=== PATIENT | female | born 1980 ===

== ENCOUNTER 2021-11-29 11:05 | Outpatient (CLI) | payer OTHER ==
--- NOTE | 2021-12-09 10:36 | Mammography Report ---
BILATERAL DIGITAL SCREENING MAMMOGRAM 3D/2D: 11/29/2021 CLINICAL: Routine screening. No prior exams were available for comparison. Both breasts are heterogeneously dense, which may obscure small masses (category c / 51-75% glandula r tissue). There is a cluster of grouped fine pleomorphic calcifications in the right breast at 12 o'clock middl e depth. There also is architectural distortion in the right breast posterior depth lateral region seen on the craniocaudal view only. No other significant masses, calcifications, or other findings are seen in either breast. IMPRESSION: INCOMPLETE: NEEDS ADDITIONAL IMAGING EVALUATION The cluster of grouped fine pleomorphic calcifications in the right breast at 12 o'clock middle depth are indeterminate. Additional views with possible ultrasound are recommended. The architectural distortion in the right breast posterior depth lateral region seen on the craniocau brent view only is indeterminate. Additional views with possible ultrasound are recommended. Based on Tyrer-Cuzick model (a risk assessment model), the patient's lifetime risk is 28.2% and her 1 0 year risk is 4.8%. If a patient has an elevated risk, a more comprehensive evaluation should be con sidered and/or a referral to a genetic counselor. The [place] [employer], [employer], and NCCN Guidelines advise the consideration of Breast MRI as an adjunct to screening mammog aura in patients whose "Lifetime risk to develop breast cancer" is 20% or higher. This exam was interpreted at Station ID: [id number]. NOTE: For mammograms, a report in lay terms will be sent to the patient. Approximately 15% of breast malignancies will not be visualized mammographically. In the management of a palpable breast mass, a negative mammogram must not discourage biopsy of a clinically suspicious lesion. Electronically Signed By: Han Green M.D., jr/refugio:12/08/2021 11:22:25 ACR BI-RADS Category 0: Incomplete 3340F PARENCHYMAL PATTERN: (D) - The breast(s) demonstrate(s) heterogeneously dense fibroglandular parenchy ma. BI-RADS CATEGORY: (0) - 0 Mammo and [place] [id number] Immediate follow-up LATERALITY: (B)
== END 2021-11-29 11:06 | disposition home or self-care (01) ==
LOC: DI.N 11:05
PROVIDERS: ATTEND Obstetrics & Gynecology
DX: Z12.31 Encounter for screening mammogram for malignant neoplasm of breast (principal); R92.1 Mammographic calcification found on diagnostic imaging of breast

== ENCOUNTER 2022-02-07 10:52 | Outpatient (CLI) | payer BC ==
[2022-02-07 11:15] LABS: BASOPHILS % (AUTO) 0.4 %; EOSINOPHILS # (AUTO) 0.2 10^3/uL (0.0-0.7); EOSINOPHILS % (AUTO) 2.9 %; HCT - HEMATOCRIT 39.3 % (37.0-47.0); LYMPHOCYTES # (AUTO) 2.1 10^3/uL (1.5-3.5); LYMPHOCYTES % (AUTO) 30.2 %; MEAN CORPUSCULAR HEMOGLOBIN 31.6 pg (27.0-31.0); MEAN CORPUSCULAR HGB CONC 33.1 g/dL (32.0-36.0); MEAN CORPUSCULAR VOLUME 95.6 fL (81.0-99.0); MONOCYTES # (AUTO) 0.4 10^3/uL (0.0-1.0); MONOCYTES % (AUTO) 5.4 %; NEUTROPHILS # (AUTO) 4.2 10^3/uL (1.5-6.6); PLT - PLATELET COUNT 270 10^3/uL (130-450); RED BLOOD COUNT 4.11 10^6/uL (4.20-5.40); RED CELL DISTRIBUTION WIDTH 13.6 % (12.0-15.0); WHITE BLOOD COUNT 6.9 x10^3/uL (4.8-10.8)
== END 2022-02-07 10:53 | disposition home or self-care (01) ==
LOC: LAB 10:52
PROVIDERS: ATTEND Obstetrics & Gynecology
DX: Z01.812 Encounter for preprocedural laboratory examination (principal); R10.2 Pelvic and perineal pain; N93.9 Abnormal uterine and vaginal bleeding, unspecified
CPT/HCPCS: 36415; 85025

== ENCOUNTER 2022-02-08 07:30 | Day surgery (SDC) | payer BC ==
[~2022-02-08 07:30] MED LIST: ACETAMINOPHEN 500 MG TABLET PO ONE; CEFAZOLIN 2G/50ML 0.9% NS 2 GM/50 ML BAG IV ONE; CELECOXIB 100 MG CAPSULE PO ONE; DEXAMETHASONE 4 MG/ML VIAL ONE; GABAPENTIN 400 MG CAPSULE ONE; MIDAZOLAM 2 MG/2 ML VIAL ONE; ONDANSETRON 4 MG/2 ML VIAL ONE; PROPOFOL 200 MG/20 ML VIAL IVP ONE; ROCURONIUM 50 MG/5 ML VIAL ONE; fentaNYL 100 MCG/2 ML VIAL ONE
[2022-02-08] MEDS ORDERED: VASOPRESSIN 20 UNIT/ML VIAL ONE (07:43)
[2022-02-08] MEDS ORDERED: BUPIVACAINE 0.25% PF 10 ML VIAL ONE (07:43)
[2022-02-08 07:55] LABS: HCG UR QUAL NEGATIVE
[2022-02-08] MEDS ORDERED: LACTATED RINGERS 1,000 ML IV ONE ×2 (08:02→12:49)
[2022-02-08] MEDS ORDERED: LIDOCAINE MPF 2%-EPI 1:200000 20 ML VIAL ONE (08:05)
[2022-02-08] MEDS ORDERED: METHYLENE BLUE 0.5% 50 MG/10 ML AMPULE ONE (08:06)
[2022-02-08] MEDS ORDERED: ATROPINE ABBOJECT 1 MG/10 ML SYRINGE IVP PRN (08:06)
[2022-02-08] MEDS ORDERED: ONDANSETRON 4 MG/2 ML VIAL IVP PRN (08:06)
[2022-02-08] MEDS ORDERED: fentaNYL 100 MCG/2 ML VIAL IVP PRN (08:06)
[2022-02-08] MEDS ORDERED: MORPHINE 2 MG/ML CARPUJECT IVP PRN (08:06)
[2022-02-08] MEDS ORDERED: NALOXONE 0.4 MG/ML VIAL IVP PRN (08:06)
[2022-02-08] MEDS ORDERED: HYDROmorphone 0.5 MG/0.5 ML SYRINGE IVP PRN (08:06)
[2022-02-08] MEDS ORDERED: ePHEDrine 50 MG/ML VIAL IVP PRN (08:06)
[2022-02-08] MEDS ORDERED: LIDOCAINE 1% 50 ML MDV ONE (08:11)
--- NOTE | 2022-02-08 08:22 | ANESTHESIA ---
Pre-Anesthesia VS, & Labs - Diagnosis pelvic pain; abnormal uterine bleeding - Procedure laparoscopic assisted vaginal hysterectomy Vital Signs: Temp Pulse Resp BP Pulse Ox O2 Flow Rate 36.3 C L 93 16 141/99 H 99 02/08/22 07:45 02/08/22 07:45 02/08/22 07:45 02/08/22 07:45 02/08/22 07:45 Height: 5 ft 2.5 in Weight (kg): 83 kg Body Mass Index: 32.9 BMI Classification: Obese - NPO >8 hours - Is Patient ?: No - Lab Results Current Lab Results: Laboratory Tests 02/08/22 08:16: POC Whole Bld Glucose 97 Home Medications and Allergies Home Medications: Ambulatory Orders Calcium Carbonate [Calcium] 1,000 mg PO DAILY 02/04/22 Cholecalciferol (Vitamin D3) [Vitamin D3] 2,000 unit PO DAILY 02/04/22 Cranberry Fruit Extract [Cranberry] 1,000 mg PO DAILY 02/04/22 Escitalopram Oxalate [Lexapro] 20 mg PO DAILY 02/04/22 Gentle Iron 28 mg PO DAILY 02/04/22 Magnesium Citrate 250 mg PO DAILY 02/04/22 Vit C/Zinc Citrate/Elderberry [Elderberry Immune Health Gummy] 1 each PO DAILY 02/04/22 flaxseed oiL [Flaxseed Oil] 1,000 mg PO DAILY 02/04/22 Active Medications Atropine Sulfate (Atropine Abboject 1 Mg/10 Ml Syringe) 0.5 mg IVP Q5M PRN PRN Reason: Bradycardia Stop: 02/09/22 08:06 Ephedrine Sulfate (Ephedrine 50 Mg/Ml Vial) 10 mg IVP Q5M PRN PRN Reason: HYPOTENSION Stop: 02/09/22 08:06 Fentanyl (Fentanyl 100 Mcg/2 Ml Vial) 25 - 50 mcg IVP Q5M PRN PRN Reason: BREAKTHROUGH PAIN (2nd Choice) Stop: 02/09/22 08:06 Hydromorphone HCl (Hydromorphone 0.5 Mg/0.5 Ml Syringe) 0.2 - 0.6 mg IVP Q5M PRN PRN Reason: PAIN (First Choice) Stop: 02/09/22 08:06 Lactated Ringer's (Lr) 1,000 mls @ 100 mls/hr IV .Q10H MONTSE Stop: 02/08/22 18:59 Morphine Sulfate (Morphine 2 Mg/Ml Carpuject) 2 - 4 mg IVP Q5M PRN PRN Reason: PAIN (3rd Choice) Stop: 02/09/22 08:06 Naloxone HCl (Naloxone 0.4 Mg/Ml Vial) 0.1 mg IVP Q2M PRN PRN Reason: RESP RATE <8 Stop: 02/09/22 08:06 Ondansetron HCl (Ondansetron 4 Mg/2 Ml Vial) 4 mg IVP ONCE PRN PRN Reason: N/V (First Choice) Stop: 02/09/22 08:06 Scopolamine HBr (Scopolamine Patch) 1 patch TOP Q3D [facility] Last Admin: 02/08/22 08:10 Dose: 1 patch Calcium Carbonate [Calcium] 1,000 mg PO DAILY 02/04/22 Cholecalciferol (Vitamin D3) [Vitamin D3] 2,000 unit PO DAILY 02/04/22 Cranberry Fruit Extract [Cranberry] 1,000 mg PO DAILY 02/04/22 Escitalopram Oxalate [Lexapro] 20 mg PO DAILY 02/04/22 Gentle Iron 28 mg PO DAILY 02/04/22 Magnesium Citrate 250 mg PO DAILY 02/04/22 Vit C/Zinc Citrate/Elderberry [Elderberry Immune Health Gummy] 1 each PO DAILY 02/04/22 flaxseed oiL [Flaxseed Oil] 1,000 mg PO DAILY 02/04/22 Allergies/Adverse Reactions: Allergies Allergy/AdvReac Type Severity Reaction Status Date / Time No Known Drug Allergies Allergy Verified 02/04/22 10:59 Anes History & Medical History - Anesthetic History Anesthesia Complications: reports: Post-Operative Nausea/Vomiting Family history of Anesthesia Complications: Denies Family history of Malignant Hyperthermia: Denies - Medical History Cardiovascular: reports: None Pulmonary: reports: Sleep apnea Gastrointestinal: reports: GERD, Hemorrhoids Urinary: reports: None Neuro: reports: None Musculoskeletal: reports: None Endocrine/Autoimmune: reports: None Blood Disorders: reports: None Skin: reports: None Smoking Status: Never smoker History of Cancer?: No - Surgical History General: reports: Colonoscopy Gynecologic: reports: Tubal ligation Exam General: Alert, Oriented x3, Cooperative, No acute distress Dental: WNL Mouth Openin Fingerbreadth Neck Mobility: Normal Mallampati classification: III Thyromental Distance: less than 4 cm Respiratory: Lungs clear Mental/Cognitive Status: Alert/Oriented X3, Normal for patient Cognitive Status: Within normal limits Plan Anesthesia Type: General Consent for Procedure(s) Verified and Reviewed: Yes Code Status: Attempt Resuscitation ASA classification: 2-Mild systemic disease Is this case an emergency?: No
[2022-02-08] MEDS ORDERED: SCOPOLAMINE PATCH TOP SCH (09:00)
[2022-02-08] MEDS ORDERED: LACTATED RINGERS 1,000 ML IV SCH (09:00)
[2022-02-08] MEDS ORDERED: ROCURONIUM 50 MG/5 ML VIAL ONE (09:41)
[2022-02-08] MEDS ORDERED: GLYCOPYRROLATE 1 MG/5 ML VIAL ONE (09:41)
[2022-02-08] MEDS ORDERED: METHYLENE BLUE 0.5% 50 MG/10 ML AMPULE IR ONE (09:42)
[2022-02-08] MEDS ORDERED: BUPIVACAINE 0.25% PF 10 ML VIAL SUBQ ONE ×2 (09:48)
[2022-02-08] MEDS ORDERED: fentaNYL 100 MCG/2 ML VIAL ONE (11:27)
[2022-02-08] MEDS ORDERED: MANNITOL 20% 500 ML IV ONE (11:30)
[2022-02-08] MEDS ORDERED: SUGAMMADEX 200 MG/2 ML VIAL IVP ONE (12:12)
[2022-02-08] MEDS ORDERED: PROPOFOL 200 MG/20 ML VIAL IVP ONE (12:24)
[2022-02-08] MEDS ORDERED: HYDROmorphone 1 MG/ML CARPUJECT IVP PRN (12:39)
[2022-02-08] MEDS ORDERED: SIMETHICONE CHEW 80 MG TABLET PO PRN (12:39)
[2022-02-08] MEDS ORDERED: oxyCODONE 5 MG TABLET PO PRN (12:39)
[2022-02-08] MEDS ORDERED: ONDANSETRON ODT 4 MG TABLET TL PRN (12:39)
[2022-02-08] MEDS ORDERED: SCOPOLAMINE PATCH TOP PRN (12:39)
--- NOTE | 2022-02-08 12:44 | OPERATIVE REPORT ---
Operative Report - General Planned Procedure: Laparoscopic assisted vaginal hysterectomy, cystoscopy Pre-Op Diagnosis: Abnormal uterine bleeding, menorrhagia, chronic pelvic pain Procedure Performed: Total laparoscopic hysterectomy, bilateral salpingectomy, cystoscopy Post Op Diagnosis: Same, status post total laparoscopic hysterectomy - Procedure Note Primary Surgeon: Kin Perera MD Secondary Surgeon: Elsie Wu DO Anesthesia Provider: Norman Glynn CRNA Anesthesia Technique: General ET tube Pathology: Uterus, cervix, bilateral fallopian tubes IV Fluids (mL): 1,500 Estimated Blood Loss (mL): 150 Urine Output (mL): 200 Findings: Normal-appearing uterus, liver. Patient had previous tubal ligation and tubal segments. Left ovarian cyst, right tubal cyst. Complications: None - Other Other Information/Narrative: Counseling Patient was counseled on the risks benefits and alternatives of laparoscopic hysterectomy versus vaginal hysterectomy, and due to her previous history of endometriosis, decision was made to use laparoscopic assistance.. The risk of bleeding including the risk for transfusion and transfusion risks were reviewed. She was counseled on the risk of infection. She was counseled on the risk of injury to surrounding organs including but not limited to the bowel bladder ureters or ovaries possibly requiring further more extensive surgery possibly at a later date. She was counseled on the possible risk of conversion to an open procedure especially if scar tissue or bleeding was encountered or if an above- noted injury occurred. He is counseled that removal of the ovaries would result in menopause. She was counseled that removal of her uterus would prevent her from having children in the future. Questions were answered the patient gave informed consent for the procedure. Technique Patient was taken to the operating room where a timeout was performed the patient was given preoperative antibiotics. General endotracheal anesthesia was found to be adequate. Patient was positioned on the operating table in dorsal lithotomy position in [facility]. A bear hugger was placed and pressure points were padded. A tilt test was performed to ensure the patient did not slide inappropriately. Patient was then prepped and draped in the normal sterile fashion using Betadine vaginally and ChloraPrep abdominally. An exam under anesthesia was performed and was consistent with her preoperative evaluation. A Simons catheter was placed under sterile conditions and was filled with methylene blue and clamped off. A bivalve speculum was inserted into the vagina. A circular knitter helper uterine manipulator was inserted through the cervix to facilitate uterine manipulation during the case. The speculum was then removed. Attention was turned to the abdomen after changing sterile attire A 5 mm umbilical incision was made with a scalpel following infusion of local anesthetic. Using a Veress needle fascia was pierced then the peritoneum and low pressure was noted as pneumoperitoneum was achieved. A 5 mm trocar and sleeve were inserted through the incision into the peritoneum under laparoscopic visualization. Pneumoperitoneum was obtained with approximately 3 L of carbon dioxide. Inspection of the underlying bowel and vasculature revealed no injuries from laparoscopic entry. Next a 5 mm right lower quadrant trocar was placed under laparoscopic visualization lateral to the course of the inferior epigastric vessels. Next a left 5 mm lower quadrant trocar was placed under laparoscopic visualization lateral to the course of the inferior epigastric vessels. Trendelenberg positioning was obtained allowing the bowel to fall from the pelvis. Exam of the pelvis noted a uterus with tubes notable for prior partial salpingectomy as well as a left ovarian cyst and right tubal cyst. She had 2 small omental adhesions cranial to the umbilical incision The course of the ureter was identified deep and lateral to our operative field. A LigaSure was used to dissect the right fallopian tube from the ovary then from the surrounding tissue. The right round ligament was coagulated and transected using the LigaSure device. The broad ligament was opened. The utero-ovarian vessels were coagulated and transected. Progress was made down the broad ligament to the level of the uterine vessels. Uterus was elevated using the uterine manipulator, the uterine vessel was skeletonized identified doubly coagulated and transected using LigaSure device at the level of the colpotomy. The bladder flap was created across the anterior surface of the uterus, but was noted to have thicker tissue and acquired extra dissection. Attention was turned to the left side. The left fallopian tube was dissected from the ovary then from the surrounding tissue. The right round ligament was coagulated and transected using the LigaSure device. The broad ligament was opened and the course of the ureter was identified deep and lateral to our operative field. The utero-ovarian vessels were coagulated and transected. Progress was made down the broad ligament to the level of the uterine vessel. Uterus was elevated using the uterine manipulator, the uterine vessel was skeletonized identified doubly coagulated and transected using the LigaSure device at the level of the colpotomy. The bladder flap was further developed across the anterior surface the uterus several centimeters below the manipulator ring. The uterus was elevated using the uterine manipulator and the colpotomy incision was made using a harmonic scalpel beginning posteriorly and proceeding anteriorly circumferentially around the colpotomy ring. The uterus was then removed through the vagina as well as the 2 tubal specimens.. The pelvis was cleared of clot and debris to reobtaining pneumoperitoneum. The bladder was released of the methylene blue. The vaginal cuff was closed using a 2-0 V-lock suture on an Endo Stitch in a running fashion, incorporating the uterosacral ligaments to the angles of the vaginal cuff to provide future vaginal pelvic support. Following closure of the vaginal cuff hemostasis was ensured. There was no evidence of injury to the bowel bladder or ureters bilaterally. Vascular pedicles remained hemostatic. The abdomen and pelvis were copiously irrigated and cleared of clot and debris. The 11 mm umbilical trocar site was closed at the fascial level using 0 Vicryl a direct stitch of [id number]. Pneumoperitoneum was released and skin was closed in a subcuticular fashion using 4-0 Monocryl. Cystoscopy: The cystoscope was then introduced after removal of the Simons. Under direct visualization using mannitol as a distending media the ureters were identified bilaterally and equal brisk ureteral jets were noted. The bladder was distended and the anatomic boundaries of the bladder were inspected and found to be free from injury. The bladder was drained and the cystoscope was removed. The Simons catheter was replaced in a sterile fashion. The patient was then cleaned and dried and legs brought down out of lithotomy position simu ltaneously. Sponge lap and needle counts were reported correct by the nursing staff following the procedure. I appreciate the assistance of Dr. Elsie Wu and Millie Huston [facility] during this procedure, and there assistance in retraction, visualization, dissection, and overall assistance during the case were instrumental to the patient's wellbeing.
[2022-02-08] MEDS: KETOROLAC 30 MG/ML VIAL IVP SCH ×2 (14:03→20:35)
[2022-02-08] MEDS: LACTATED RINGERS 1,000 ML IV SCH ×2 (14:07→16:29)
--- NOTE | 2022-02-08 15:31 | ANESTHESIA POST OP EVALUATION ---
Anesthesia Post Eval - Post Anesthesia Eval Vitals: Last Vital Signs Temp 36.4 C L 02/08/22 14:57 Pulse 81 02/08/22 14:57 Resp 20 02/08/22 14:57 BP 144/85 H 02/08/22 14:57 Pulse Ox 94 02/08/22 14:57 O2 Flow Rate 3 02/08/22 13:59 CV Function Including HR & BP: Stable Pain Control: Satisfactory Nausea & Vomiting: Negative Mental Status: Baseline Respiratory Status: Airway Patent Hydration Status: Satisfactory Anesthesia Complications: None
[2022-02-08] MEDS: ACETAMINOPHEN 500 MG TABLET PO SCH ×2 (16:30→23:57)
[2022-02-08] MEDS: DOCUSATE SODIUM 100 MG CAPSULE PO SCH (20:36)
[2022-02-09] MEDS: LACTATED RINGERS 1,000 ML IV SCH (02:04)
[2022-02-09] MEDS: KETOROLAC 30 MG/ML VIAL IVP SCH (02:04)
[2022-02-09 05:15] LABS: BASOPHILS % (AUTO) 0.3 %; EOSINOPHILS % (AUTO) 0.2 %; HCT - HEMATOCRIT 35.5 % (37.0-47.0); HGB - HEMOGLOBIN 11.1 g/dL (12.0-16.0); LYMPHOCYTES # (AUTO) 2.5 10^3/uL (1.5-3.5); LYMPHOCYTES % (AUTO) 23.5 %; MEAN CORPUSCULAR HEMOGLOBIN 31.6 pg (27.0-31.0); MEAN CORPUSCULAR HGB CONC 31.3 g/dL (32.0-36.0); MEAN CORPUSCULAR VOLUME 101.1 fL (81.0-99.0); MEAN PLATELET VOLUME 9.9 fL (7.9-10.8); MONOCYTES # (AUTO) 0.6 10^3/uL (0.0-1.0); MONOCYTES % (AUTO) 5.3 %; NEUTROPHILS # (AUTO) 7.6 10^3/uL (1.5-6.6); NEUTROPHILS % (AUTO) 70.4 %; PLT - PLATELET COUNT 249 10^3/uL (130-450); RED BLOOD COUNT 3.51 10^6/uL (4.20-5.40); RED CELL DISTRIBUTION WIDTH 14.2 % (12.0-15.0); WHITE BLOOD COUNT 10.8 x10^3/uL (4.8-10.8)
[2022-02-09 07:49] VITALS: BP 126/70
[2022-02-09] MEDS ORDERED: IBUPROFEN 600 MG TABLET PO SCH (08:00)
[2022-02-09] MEDS: ACETAMINOPHEN 500 MG TABLET PO SCH (08:51)
[2022-02-09] MEDS: DOCUSATE SODIUM 100 MG CAPSULE PO SCH (08:52)
[2022-02-09] MEDS ORDERED: ENOXAPARIN 40 MG/0.4 ML SYRINGE SUBQ SCH (09:00)
--- NOTE | 2022-02-09 09:37 | Discharge Plan ---
Discharge Plan Problem Reviewed?: Yes Disposition: Home, Self Care Condition: Good Prescriptions: oxyCODONE [Roxicodone] 2.5 - 5 mg PO Q4H PRN #12 tablet PRN Reason: Severe Pain Activity Restrictions: No Restrictions Shower Restrictions: No Driving Restrictions: Yes (For 2 weeks or while taking opioid medications) Weight Bearin-20 pound maximum Instruction Topics: Hysterectomy Laparoscopic Dc No Smoking: If you smoke, Please STOP! Call for help. Follow-up with: Kin Perera MD [Provider Admit Priv/Credential] -
--- NOTE | 2022-02-09 09:42 | DISCHARGE SUMMARY ---
Discharge Summary Admit Date: 02/08/22 Discharge Date: 02/09/22 Discharging Provider: Kin Sharp MD Condition at Discharge: Good Discharge Disposition: 01 Home, Self Care - DIAGNOSES Admission Diagnoses: Abnormal uterine bleeding Pelvic pain Discharge Diagnoses with Status of Each Condition: Abnormal uterine bleeding: Status post total laparoscopic hysterectomy and bilateral salpingectomy Pelvic pain: Stable - HPI History of Present Illness: Subjective: Patient is a 41-year-old female postoperative day 1 from a total laparoscopic hysterectomy. Pain is well controlled. Ambulating without difficulty. No calf pain or tenderness. No shortness of breath or chest pain. Overnight events: No acute events Objective: Physical exam: Constitutional: alert, oriented, no acute distress Cardiovascular: Regular rate and rhythm. No murmurs, rubs, gallops. Respiratory: No respiratory distress. Clear to auscultation bilaterally. Abdomen: Incision dry, intact. Small amount of old, dry blood around umbilicus appropriate tenderness postoperative. Dermabond over lower quadrant incisions Extremities: No swelling or tenderness. No cords. Distal pulses intact. Psych: affect and mood appropriate, normal interaction, good eye contact. - HOSPITAL COURSE Hospital Course: Patient was a 41-year-old female presenting for a scheduled hysterectomy. Hysterectomy was uncomplicated other than slightly increased scar tissue on the anterior uterus, but no acute events during surgery. Postoperative cystoscopy was unremarkable and showed good reflux of both ureters. Postoperative course was uneventful and with good pain control. She was urinating spontaneously. She was discharged on postoperative day 1 in good condition. - ALLERGIES Allergies/Adverse Reactions: Allergies Allergy/AdvReac Type Severity Reaction Status Date / Time No Known Drug Allergies Allergy Verified 02/04/22 10:59 - MEDICATIONS Home Medications: Ambulatory Orders Medication Instructions Recorded Confirmed Calcium Carbonate [Calcium] 1,000 mg PO DAILY 02/04/22 02/04/22 Cholecalciferol (Vitamin D3) 2,000 unit PO DAILY 02/04/22 02/04/22 [Vitamin D3] Cranberry Fruit Extract [Cranberry] 1,000 mg PO DAILY 02/04/22 02/04/22 Escitalopram Oxalate [Lexapro] 20 mg PO DAILY 02/04/22 02/08/22 Gentle Iron 28 mg PO DAILY 02/04/22 02/04/22 Magnesium Citrate 250 mg PO DAILY 02/04/22 02/04/22 Vit C/Zinc Citrate/Elderberry 1 each PO DAILY 02/04/22 02/04/22 [Elderberry Immune Health Gummy] flaxseed oiL [Flaxseed Oil] 1,000 mg PO DAILY 02/04/22 02/04/22 oxyCODONE [Roxicodone] 2.5 - 5 mg PO Q4H PRN #12 tablet 02/09/22 - LABS Result Diagrams: 02/09/22 05:05 - FOLLOW UP Follow Up: With Kin Perera MD in 1 week at [facility] - TIME SPENT Time Spent in Discharge (Minutes): 20
== END 2022-02-09 10:29 | disposition home or self-care (01) ==
LOC: SDS 07:30 → MS2 13:42 → SDS 02-09 10:29
PROVIDERS: ATTEND Obstetrics & Gynecology
PROC: 0UB74ZZ Excision of Bilateral Fallopian Tubes, Percutaneous Endoscopic Approach (ICD-10-PCS; 2022-02-08)
PROC: 0UT94ZZ Resection of Uterus, Percutaneous Endoscopic Approach (ICD-10-PCS; principal; 2022-02-08 08:30)
DX: N93.8 Other specified abnormal uterine and vaginal bleeding (principal); N92.0 Excessive and frequent menstruation with regular cycle; N83.201 Unspecified ovarian cyst, right side; N83.8 Other noninflammatory disorders of ovary, fallopian tube and broad ligament; G89.29 Other chronic pain; R10.2 Pelvic and perineal pain; E66.9 Obesity, unspecified; G47.30 Sleep apnea, unspecified; Z32.02 Encounter for pregnancy test, result negative; Z68.32 Body mass index [BMI] 32.0-32.9, adult; Z98.51 Tubal ligation status
CPT/HCPCS: 36415; 58571; 81025; 85025; A9270; J0690; J1650; J3490; J7120

== ENCOUNTER 2022-12-26 10:01 | Outpatient (CLI) | payer BC ==
--- NOTE | 2022-12-26 15:55 | Mammography Report ---
BILATERAL DIGITAL DIAGNOSTIC MAMMOGRAM 3D/2D WITH SPOT COMPRESSION: 12/26/2022 CLINICAL: Palpable left breast lump by physician. Due for bilateral. Comparison is made to exams dated: 12/24/2021 mammogram, 11/29/2021 mammogram - [facility], 10/16/2020 mammogram, 12/03/2020 mammogram, and 01/17/2019 mammogram - [facility]. Both breasts are heterogeneously dense, which may obscure small masses (category c / 51-75% glandular tissue). There is a 0.4 cm oval mass in the left breast at 7 o'clock posterior depth. This correlates with ar ea of clinical concern. No other significant masses, calcifications, or other findings are seen in either breast. IMPRESSION: INCOMPLETE: NEEDS ADDITIONAL IMAGING EVALUATION The 0.4 cm oval mass in the left breast is indeterminate. An ultrasound is recommended. Based on Tyrer-Cuzick model (a risk assessment model), the patient's lifetime risk is 27.7% and her 1 0 year risk is 4.5%. If a patient has an elevated risk, a more comprehensive evaluation should be con sidered and/or a referral to a genetic counselor. The [place] [employer], [employer], and NCCN Guidelines advise the consideration of Breast MRI as an adjunct to screening mammog aura in patients whose "Lifetime risk to develop breast cancer" is 20% or higher. This exam was interpreted at Station ID: [id number]. NOTE: For mammograms, a report in lay terms will be sent to the patient. Approximately 15% of breast malignancies will not be visualized mammographically. In the management of a palpable breast mass, a negative mammogram must not discourage biopsy of a clinically suspicious lesion. Electronically Signed By: Bean Guillermo M.D. lc/:12/26/2022 11:42:43 ACR BI-RADS Category 0: Incomplete 3340F PARENCHYMAL PATTERN: (D) - The breast(s) demonstrate(s) heterogeneously dense fibroglandular parenchy ma. BI-RADS CATEGORY: (0) - 0 Ultrasound [id number] Immediate follow-up LATERALITY: (B)
--- NOTE | 2022-12-26 15:55 | Ultrasound Report ---
LIMITED ULTRASOUND OF LEFT BREAST: 12/26/2022 CLINICAL: Palpable left breast lump. Comparison is made to exams dated: 12/26/2022 mammogram, 11/29/2021 mammogram - [facility], 12/03/2020 mammogram, 10/16/2020 mammogram, and 01/17/2019 mammogram - [facility]. Color flow ultrasound of the left breast 7 o'clock region was performed. Quinteros scale images of the r eal-time examination were reviewed. There is a possible benign 0.5 cm x 0.4 cm x 0.2 cm complicated cyst based in the skin in the left br east at 7 o'clock anterior depth 8 cm from the nipple. This correlates as palpated and with mammogra phy findings. IMPRESSION: BENIGN There is no sonographic evidence of fibroglandular malignancy. The possible 0.5 cm x 0.4 cm x 0.2 cm complicated cyst visible on the skin and ultrasound should be followed clinically for change and sym ptoms. Return to annual mammogram screening schedule is recommended. This exam was interpreted at Station ID: [id number]. Electronically Signed By: Bean Guillermo M.D. lc/:12/26/2022 11:45:50 Ultrasound BI-RADS: 2 Benign BI-RADS CATEGORY: (2) - 2 Mammogram [id number] return to screening LATERALITY: (B)
== END 2022-12-26 10:02 | disposition home or self-care (01) ==
LOC: DI 10:01
PROVIDERS: ATTEND Obstetrics & Gynecology
DX: N63.32 Unspecified lump in axillary tail of the left breast (principal)

== ENCOUNTER 2023-08-09 08:45 | Outpatient (CLI) | payer BC ==
[2023-08-09 09:11] LABS: ALBUMIN 4.3 g/dL (3.2-5.5); ALBUMIN/GLOBULIN RATIO 1.2 (1.0-2.2); ALKALINE PHOSPHATASE 89 IU/L (42-121); ALT ALANINE AMINOTRANSFERASE 17 IU/L (10-60); AST ASPARTATE AMINOTRANSFERASE 13 IU/L (10-42); BASOPHILS % (AUTO) 0.5 %; BILIRUBIN,TOTAL 0.4 mg/dL (0.2-1.0); BUN - BLOOD UREA NITROGEN 9 mg/dL (6-20); CALCIUM 10.3 mg/dL (8.5-10.3); CARBON DIOXIDE - CO2 30 mmol/L (21-32); CHLORIDE 102 mmol/L (101-111); CHOL/HDL RATIO 5.9 (<4.4); CHOLESTEROL 206 mg/dL; CREATININE 0.9 mg/dL (0.6-1.3); EOSINOPHILS # (AUTO) 0.7 10^3/uL (0.0-0.7); EOSINOPHILS % (AUTO) 8.9 %; GFR - MDRD 69 (>89); GLUCOSE 106 mg/dL (74-104); HCT - HEMATOCRIT 41.2 % (37.0-47.0); HDL CHOLESTEROL 35 mg/dL; HGB - HEMOGLOBIN 13.2 g/dL (12.0-16.0); LDL CHOLESTEROL,CALCULATED 140 mg/dL; LYMPHOCYTES # (AUTO) 2.8 10^3/uL (1.5-3.5); LYMPHOCYTES % (AUTO) 35.8 %; MEAN CORPUSCULAR HEMOGLOBIN 31.1 pg (27.0-31.0); MEAN CORPUSCULAR VOLUME 96.9 fL (81.0-99.0); MEAN PLATELET VOLUME 9.5 fL (7.9-10.8); MONOCYTES # (AUTO) 0.4 10^3/uL (0.0-1.0); MONOCYTES % (AUTO) 4.7 %; NEUTROPHILS # (AUTO) 3.9 10^3/uL (1.5-6.6); PLT - PLATELET COUNT 332 10^3/uL (130-450); POTASSIUM 4.5 mmol/L (3.5-4.5); RED BLOOD COUNT 4.25 10^6/uL (4.20-5.40); RED CELL DISTRIBUTION WIDTH 13.3 % (12.0-15.0); SODIUM 137 mmol/L (135-145); TOTAL PROTEIN 7.8 g/dL (6.4-8.9); TRIGLYCERIDES 154 mg/dL (48-352); VLDL CHOLESTEROL 31 mg/dL; WHITE BLOOD COUNT 7.9 x10^3/uL (4.8-10.8)
[2023-08-09 09:26] LABS: THYROID STIMULATING HORMONE 1.94 uIU/mL (0.34-5.60)
== END 2023-08-09 08:46 | disposition home or self-care (01) ==
LOC: LAB 08:45
PROVIDERS: ATTEND Nurse Practitioner Family
DX: D64.9 Anemia, unspecified (principal); E66.9 Obesity, unspecified; L65.9 Nonscarring hair loss, unspecified; Z13.6 Encounter for screening for cardiovascular disorders
CPT/HCPCS: 36415; 80053; 80061; 82306; 83721; 84443; 85025

== ENCOUNTER 2023-10-18 10:00 | Outpatient (CLI) | payer BC ==
--- NOTE | 2023-10-18 10:54 | Sleep Patient Instructions ---
Sleep Center Visit Summary - Patient Visit Information Reason for Visit: Initial consult for evaluation of sleep disordered breathing and other sleep issues. - Patient Instructions Instructions Attached: Sleep Study Home Monitor Additional Instructions: You will be completing a sleep study, either an in-lab polysomnography (PSG) or home sleep study (HST). You will follow-up in the sleep care office after the sleep study is completed to hear the results and talk about therapy, if needed. You will be called by our office staff to schedule this appointment, but you may contact us with any questions. - Clinic Information Contact: [facility] [address] [place] [address] [email or web address] T: [phone]
--- NOTE | 2023-10-18 10:59 | SLEEP CARE CONSULTATION ---
Information from patient questionnaire entered by Orville Reece. I have reviewed and concur with the information entered by Orville Reece. This document represents the service I personally performed and the decisions made by me, Malini Dior ARNP. History of Present Illness Service Date and Time: 10/18/2023 1000 Reason for Visit: New patient Chief Complaint: reports: Unrefreshed sleep, Snoring, Excessive daytime sleepiness, Fatigue Date of Onset: 6+YRS Usual bedtime: 7826-9532 Time it takes to fall asleep: WITH IN 30MINS UNLESS TOO HOT Snores at night: Yes Observed to quit breathing while asleep: Yes Sleeps alone due to snoring: No Number of times waking at night: DON'T KNOW Reasons for waking at night: reports: Bathroom, Other (UNKNOWN). denies: Choking, Snoring, Gasping for air Toss, Turn, or Twitch while sleeping: Yes Recalls having dreams: Yes Usually gets out of bed at: 5814-7529 Feels refreshed in the morning: Yes (half the time she does not feel refreshed) Morning headache: Yes (1-2 times a month, teeth grinding and allergies) Sleepy or fatigued during the day: Yes Ever fallen asleep while driving: No Takes day naps: Yes (2 times a week for about an hour) Dreams during day naps: Yes Prior sleep studies: Yes Additional HPI information: I had the pleasure of seeing OSWALDO KUMAR today regarding the possibility of her having a sleep disorder. Her current complaints are excessive daytime sleepiness, fatigue, snoring and unrefreshed sleep. She says she had a sleep apnea screening 5-6 years ago and was found to have mild sleep apnea and no treatment at that time. She has gained weight, about 20 pounds. Her tells her that she snores loudly and if she is on her back she will "sputter" when sleeping. This does not wake her up. She denies waking up gasping for air or feeling like she is choking. She says about half the time she will wake up feeling refreshed. She is pre-diabetic and her blood pressure has been more elevated lately but not in hypertensive range. She has changed her diet and states that she has more energy and is taking less naps. Her was just recently diagnosed with sleep apnea and was placed on a CPAP machine. - Parasomnia Symptoms Ever been unable to move upon waking from sleep: No Walks in sleep: No Talks in sleep: No Ever acted out dreams in sleep: Yes (will jump in sleep due to dream, will make a noise) Ever felt weak in the knees when startled or emotional: No Bothered by creepy, crawly, restless sensations in legs: No Problems with memory or concentration: Yes (always has trouble with concentration) Subjective Initial [place] Sleepiness Scale score: 7 (10/18/23) Past Medical History Past Medical History: reports: Diabetes (pre-), Anxiety, Other (STAGE 2 KIDNEY FAILURE HYPERLIPDEMIA, TEETH CLENCHING GRINDING , ACNE) Social History The patient's occupation is a [employer]. Patient is and lives in [place]. Have you smoked in the past 12 months: No Alcohol use: Yes Alcohol amount and frequency: 1 DRINK RARELY Caffeine use: Yes Caffeine amount and frequency: 1 DRINK RARELY, MOSTLY DRINK DECAF Family History Family history of sleep disordered breathing: Yes Family Hx Sleep Apnea: Mother: Snoring, Father: Snoring, Other: Sleep apnea - Treated (PATERNAL UNCLE) Allergies and Home Medications Known drug allergies: No Drug allergies reviewed: Yes Home medication list reviewed: Yes (as listed) Allergy and home medication list: Allergies No Known Drug Allergies Allergy (Verified 10/16/23 07:49) Home Medications Medication Instructions Recorded Confirmed Last Taken Type Calcium Carbonate [Calcium] 1,000 mg PO DAILY 02/04/22 10/18/23 Unknown History Cholecalciferol (Vitamin D3) 2,000 unit PO DAILY 02/04/22 10/18/23 Unknown History [Vitamin D3] Escitalopram Oxalate [Lexapro] 20 mg PO DAILY 02/04/22 10/18/23 02/07/22 History Gentle Iron 28 mg PO DAILY 02/04/22 10/18/23 Unknown History Loratadine [Claritin] See Rx Instructions .ROUTE .COMPLEX 10/18/23 10/18/23 Unknown History Sandgap-3/Dha/Epa/Fish Oil [Fish Oil See Rx Instructions .ROUTE .COMPLEX 10/18/23 10/18/23 Unknown History 1,000 mg Softgel] Review of Systems Weight gain over past 5 years: 20 Weight loss over past 5 years: 7 Cardiovascular: reports: high blood pressure Gastrointestinal: reports: heartburn Urinary: reports: other (STAGE 2 KIDNEY FAILURE) Neurological: reports: headaches. denies: head trauma Psychiatric: reports: anxiety, depression Ear/Nose/Throat: reports: nasal congestion, sinus problems, wisdom teeth removed. denies: injury to nose, tonsillectomy Endocrine: reports: sluggishness Musculoskeletal: reports: joint pain, neck pain, back pain Immunologic: reports: allergies to food or environment Physical Exam Vital signs obtained and entered by: ORVILLE Castorena MA Blood Pressure: 129/82 (LEFT ARM) Cuff size: regular Heart Rate: 67 O2 Saturation: 98 Height: 5 ft 2.5 in Weight: 180 lb 9.6 oz Body Mass Index: 32.5 BMI Classification: Obese Neck circumference: 15.25 Mouth and throat: narrow oropharynx Soft palate: long Hard palate: normal Uvula: normal Uvula visualization: 0% Mallampati Class IV Tongue: enlarged in size with teeth sandoval on lateral edges Tonsils: 1+ Neck: normal w/o lymphadenopathy or thyromegaly Heart: regular rate and rhythm Lungs: clear bilaterally Impression and Plan 1. Suspected Obstructive Sleep Apnea-Hypopnea Syndrome, as suggested by a history of loud and irregular snoring, morning headache, unrefreshed sleep, cognitive impairment, and excessive daytime sleepiness. Narrow oropharynx and obesity are common predisposing factors for obstructive sleep apnea-hypopnea syndrome. I recommend proceeding to polysomnography to confirm the diagnosis and to assess severity. If the patient has significant sleep disordered breathing, a manual CPAP titration study will also be performed to find the optimal treatment pressure. I informed the patient of what the sleep studies involve and after some discussion, obtained agreement to proceed. The pathophysiology of obstructive sleep apnea-hypopnea syndrome was discussed with the patient and health risks of cardiovascular and cerebrovascular disease if not treated. Risks of drowsy driving discussed in detail and patient advised to avoid long distance driving and to lathe puller at the first sign of drowsiness. Patient agreed to plan. * Schedule polysomnography * Avoid long distance driving or driving when feeling sleepy. * Avoid alcohol, sedative and muscle relaxant around bedtime. * Attempt to lose weight. * Review instructions provided by trained office staff on how to prepare for the sleep study. * Return for follow-up after sleep study completed. Counseling Topics: Weight loss health impact Plan: PSG/HST and followup Visit Type: In Office Time Spent with Patient (minutes): 30 Provider Statement: I spent 100% of the Face to Face Visit with the patient with greater than 50% spent counseling the patient and coordination of care.
[2023-10-18 11:09] VITALS: BP 129/82; O2SAT 98
== END 2023-10-18 10:01 | disposition home or self-care (01) ==
LOC: SC 10:00
PROVIDERS: ATTEND Nurse Practitioner Family
DX: R51.9 Headache, unspecified (principal); G47.10 Hypersomnia, unspecified; R41.89 Other symptoms and signs involving cognitive functions and awareness; R06.83 Snoring; E66.9 Obesity, unspecified; Z68.32 Body mass index [BMI] 32.0-32.9, adult
CPT/HCPCS: 99203; 99212

== ENCOUNTER 2023-10-31 08:45 | Outpatient (CLI) | payer BC ==
[2023-10-31 09:20] LABS: ALBUMIN 4.6 g/dL (3.2-5.5); ALBUMIN/GLOBULIN RATIO 1.5 (1.0-2.2); ALKALINE PHOSPHATASE 54 IU/L (42-121); ALT ALANINE AMINOTRANSFERASE 11 IU/L (10-60); AST ASPARTATE AMINOTRANSFERASE 12 IU/L (10-42); BILIRUBIN,TOTAL 0.4 mg/dL (0.2-1.0); BUN - BLOOD UREA NITROGEN 11 mg/dL (6-20); CALCIUM 10.1 mg/dL (8.5-10.3); CARBON DIOXIDE - CO2 28 mmol/L (21-32); CHLORIDE 103 mmol/L (101-111); CHOL/HDL RATIO 5.1 (<4.4); CHOLESTEROL 210 mg/dL; CREATININE 0.9 mg/dL (0.6-1.3); GFR - MDRD 68 (>89); GLUCOSE 107 mg/dL (74-104); HDL CHOLESTEROL 41 mg/dL; LDL CHOLESTEROL,CALCULATED 137 mg/dL; LDL/HDL RATIO 3.3 (<4.4); POTASSIUM 4.5 mmol/L (3.5-4.5); SODIUM 136 mmol/L (135-145); TOTAL PROTEIN 7.6 g/dL (6.4-8.9); TRIGLYCERIDES 159 mg/dL; VLDL CHOLESTEROL 32 mg/dL
[2023-10-31 10:24] LABS: ESTIMATED AVERAGE GLUCOSE 103 mg/dL (70-100); HEMOGLOBIN A1c% 5.2 % (4.27-6.07)
== END 2023-10-31 08:46 | disposition home or self-care (01) ==
LOC: LAB 08:45
PROVIDERS: ATTEND Nurse Practitioner Family
DX: N18.2 Chronic kidney disease, stage 2 (mild) (principal); R73.03 Prediabetes; E78.2 Mixed hyperlipidemia
CPT/HCPCS: 36415; 80053; 80061; 83036; 83721

== ENCOUNTER 2023-11-17 09:26 | Outpatient (CLI) | payer BC | END 2023-11-17 09:27 | disposition home or self-care (01) | LOC: SC 09:26 | PROVIDERS: ATTEND Nurse Practitioner Family | DX: G47.33 Obstructive sleep apnea (adult) (pediatric) (principal); R09.02 Hypoxemia; E66.9 Obesity, unspecified; Z68.32 Body mass index [BMI] 32.0-32.9, adult | CPT/HCPCS: 95806 ==

== ENCOUNTER 2023-12-06 15:10 | Outpatient (CLI) | payer BC ==
--- NOTE | 2023-12-06 16:01 | Sleep Patient Instructions ---
Sleep Center Visit Summary - Patient Visit Information Reason for Visit: Sleep study follow-up - Patient Instructions Instructions Attached: CPAP Additional Instructions: You are being started on CPAP therapy with pressure setting at 4-15 cmH2O. You will need to call the sleep care office to set up your follow up once you have your CPAP machine to check compliance and response to therapy at that time. You may call the office with any concerns about pressure feeling too low or too much for adjustment, if needed. You should contact DME supplier for any questions or concerns about mask or equipment. Please call office to schedule a follow up appointment in the sleep care office one month after obtaining new device. - Clinic Information Contact: [facility] [address] [place] [address] [email or web address] T: [phone]
--- NOTE | 2023-12-06 16:04 | SLEEP CARE CONSULTATION ---
Information from patient questionnaire entered by Samantha Kay. I have reviewed and concur with the information entered by Samantha Kay. This document represents the service I personally performed and the decisions made by me, Malini Dior ARNP. History of Present Illness Service Date and Time: 12/06/2023 1510 Initial [place] Sleepiness Scale score: 7 (10/18/23) Current [place] Sleepiness Scale score: 10 (12/06/23) Additional HPI information: OSWALDO KUMAR returns for follow up and results of the recently performed home sleep study. The sleep study done on 11/17/23 showed moderate obstructive sleep apnea with an average AHI of 20.1 and smiley oxygen saturation of 83%. I explained the pathophysiology behind obstructive sleep apnea. We then spent quite a bit of time discussing different treatment options. For mild obstruct maureen sleep apnea, surgery and oral appliance are alternatives to nasal CPAP therapy but in moderate or severe cases, nasal CPAP is the most effective and reliable treatment. Because apnea is primarily in supine position, then positional management therapy could be effective. Methods discussed such as positioning with pillows, using a T-shirt with tennis balls in the back or commercial products that have a pillow format on back to prevent supine sleep. I reviewed the impact of weight changes on sleep apnea and strongly recommended losing weight. After some discussion, the patient opted to go with the nasal CPAP therapy. Nasal autoCPAP set at 4-15 cmH20 will be ordered with rationale explained. A manual titration study will be ordered if unable to find optimal pressure with office adjustments. I explained how CPAP machine works and what to expect when using the machine. Using CPAP every night in order to get used to it was emphasized. Patient advised to put CPAP mask on before getting into bed so as not to fall asleep without CPAP. To assist acclimation to CPAP use, it could also be used for a short time during day while reading or watching TV. The patient was instructed to call the CPAP supplier to discuss any mechanical problem that may occur. If the mask given is uncomfortable or is difficult to keep on through the night even with adjustment, contact the CPAP supplier as many will replace with another mask style if notified before 30 days. If snoring or perceives is not getting enough air or too much air from the machine, notify this office. Patient does not drink alcohol. Patient was cautioned about risks of drowsy driving until sleepiness symptoms resolve. Patient denies drowsy driving. Sleep Study - Results Type of Sleep Study: Home sleep study Prior sleep studies: Yes Polysomnography/Home Sleep Study results: Physician Impression: The quality of the study is good. The length of the study is adequate (> 240 minutes). Please also see the tabulated and graphic data. 1. Obstructive Sleep Apnea-Hypopnea (ICD-10 G47.33), moderate, with an AHI of 20.1/hr and smiley SaO2 of 83%. During the study, the patient had 6 apneas (6 obstructive, 0 central, 0 mixed) and 153 hypopneas. The longest episode lasted 108.5 seconds. The respiratory events occurred more frequently during supine sleep (supine AHI was 36.1 and non-supine, 12.93). 2. Hypoxemia (ICD-10 R09.02), mild, with the lowest oxygen saturation of 83 % and 32.1 minutes with SaO2 under 90%. Baseline oxygen saturation was normal (Average oxygen saturation was 92%). Allergies and Home Medications Known drug allergies: No Drug allergies reviewed: Yes Home medication list reviewed: Yes (no changes) Allergy and home medication list: Allergies No Known Drug Allergies Allergy Review of Systems Review of systems same as previous: No (pre-diabetes resolved) Physical Exam Vital signs obtained and entered by: Malini Mir NP Blood Pressure: 124/80 Cuff size: long (right arm) Heart Rate: 63 O2 Saturation: 98 Height: 5 ft 2.5 in Weight: 175 lb 12.8 oz Body Mass Index: 31.6 BMI Classification: Obese Impression and Plan 1. Obstructive Sleep Apnea-Hypopnea Syndrome, moderate, with lowest oxygen saturation of 83%. Obviously this is the cause of the patients symptoms of unrefreshed sleep, and excessive daytime sleepiness. Positive pressure therapy could benefit anxiety. She says her blood work shows that she is no longer pre-diabetic. As mentioned above, the patient will be started on nasal autoCPAP therapy with pressure set at 4-15 cmH2O. A manual titration study will be completed if unable to find optimal treatment pressure with office adjustments. Compliance guidelines also reviewed. A copy of compliance guidelines will be given for reference at check out. Because the apnea is more severe supine, I instructed to avoid sleeping supine using pillow positioning until able to start CPAP use. 2. Hypoxemia, mild, with a smiley oxygen saturation of 83% and 32.1 minutes spent under 90%. The baseline oxygen saturation was normal with an average oxygen saturation of 92%. 3. Obesity, unspecified. Currently patients BMI is 31.6. Obesity increases the risk of apnea, CPAP pressure requirements and overall health risks especially cardiovascular and diabetes. Thus patient is advised to lose weight. * Nasal auto CPAP therapy, pressure at 4-15 cmH2O. * Attempt to lose weight. * Avoid alcohol consumption near bedtime. * Avoid supine sleep until using CPAP. * The patient is again cautioned about driving until sleepiness completely resolves. * Return one month after CPAP obtained. I will assess response to therapy and compliance at that time. Counseling Topics: Sleeping position, Weight loss health impact Prescriptions: Auto CPAP Follow up with Sleep Care in: other (compliance followup) Visit Type: In Office Time Spent with Patient (minutes): 23 Provider Statement: I spent 100% of the Face to Face Visit with the patient with greater than 50% spent counseling the patient and coordination of care.
[2023-12-06 16:13] VITALS: BP 124/80; O2SAT 98
== END 2023-12-06 15:11 | disposition home or self-care (01) ==
LOC: SC 15:10
PROVIDERS: ATTEND Nurse Practitioner Family
DX: G47.33 Obstructive sleep apnea (adult) (pediatric) (principal); R09.02 Hypoxemia; E66.9 Obesity, unspecified; Z68.31 Body mass index [BMI] 31.0-31.9, adult
CPT/HCPCS: 99212; 99213

== ENCOUNTER 2023-12-12 07:58 | Outpatient (CLI) | payer BC ==
[2023-12-12 08:53] LABS: FERRITIN 31.1 ng/mL (11.0-306.8)
== END 2023-12-12 07:59 | disposition home or self-care (01) ==
LOC: LAB 07:58
PROVIDERS: ATTEND Specialist
DX: E61.1 Iron deficiency (principal)
CPT/HCPCS: 36415; 81599; 82728; 83540; 84466

== ENCOUNTER 2023-12-15 08:06 | Outpatient (CLI) | payer BC ==
--- NOTE | 2023-12-18 08:12 | Mammography Report ---
BILATERAL DIGITAL SCREENING MAMMOGRAM 3D/2D: 12/15/2023 CLINICAL: Routine screening. Family history of breast cancer. Comparison is made to exams dated: 12/26/2022 mammogram, 12/24/2021 mammogram, 11/29/2021 mammogram - [facility], 12/03/2020 mammogram, 10/16/2020 mammogram, and 01/17/2019 mammogram - [facility]. Both breasts are heterogeneously dense, which may obscure small masses (category c / 51-75% glandular tissue). No significant masses, calcifications, or other findings are seen in either breast. There has been no significant interval change. IMPRESSION: NEGATIVE There is no mammographic evidence of malignancy. A 1 year screening mammogram is recommended. Based on Tyrer-Cuzick model (a risk assessment model), the patient's lifetime risk is 27.7% and her 1 0 year risk is 4.8%. If a patient has an elevated risk, a more comprehensive evaluation should be con sidered and/or a referral to a genetic counselor. The [place] [employer], [employer], and NCCN Guidelines advise the consideration of Breast MRI as an adjunct to screening mammog aura in patients whose "Lifetime risk to develop breast cancer" is 20% or higher. This exam was interpreted at Station ID: [id number]. NOTE: For mammograms, a report in lay terms will be sent to the patient. Approximately 15% of breast malignancies will not be visualized mammographically. In the management of a palpable breast mass, a negative mammogram must not discourage biopsy of a clinically suspicious lesion. Electronically Signed By: Romeo duffy/refugio:12/15/2023 14:15:33 letter sent: No_Letter ACR BI-RADS Category 1: Negative [id number] PARENCHYMAL PATTERN: (D) - The breast(s) demonstrate(s) heterogeneously dense fibroglandular parginnay hai. BI-RADS CATEGORY: (1) - 1 RECOMMENDATION: (ANNUAL) - Recommend routine annual screening mammography. [id number] 1 year screening LATERALITY: (B)
== END 2023-12-15 08:07 | disposition home or self-care (01) ==
LOC: DI 08:06
PROVIDERS: ATTEND Nurse Practitioner Family
DX: Z12.31 Encounter for screening mammogram for malignant neoplasm of breast (principal); R92.333 Mammographic heterogeneous density, bilateral breasts; Z80.3 Family history of malignant neoplasm of breast